=== PATIENT | male | born 1990 | race African-American/Black ===

== ENCOUNTER 2017-04-10 22:40 | Emergency (ER) | payer MEDICAID ==
[~2017-04-10] VITALS: Ht 170.2 cm; Wt 68.0 kg
[2017-04-10 23:05] VITALS: BP 165/108
[2017-04-11] MEDS ORDERED: SODIUM CHLORIDE 0.9% 1,000 ML IVB ONE (00:10)
== END 2017-04-11 01:02 | disposition left against medical advice (07) ==
LOC: EDBD 22:40 → ER 22:51
DX: F19.920 Other psychoactive substance use, unspecified with intoxication, uncomplicated (principal); F41.9 Anxiety disorder, unspecified; F31.9 Bipolar disorder, unspecified; R41.82 Altered mental status, unspecified

== ENCOUNTER 2018-08-16 19:24 | Emergency (ER) | payer MEDICAID ==
[~2018-08-16] VITALS: Ht 175.3 cm; Wt 74.8 kg
[2018-08-16] MEDS ORDERED: LORazepam 0.5 MG TAB PO ONE (20:45)
[2018-08-16 20:56] LABS: Urine WBC None Seen /hpf (0 - 3)
[2018-08-16 21:07] LABS: Urine Bacteria NONE SEEN /hpf (None Seen); Urine Blood Negative /uL (Negative); Urine Specific Gravity 1.001 (1.001-1.035)
[2018-08-16 21:14] LABS: Basophils # (auto) 0.1 uL; Basophils % (auto) 0.5 % (0.0-2.0); Eosinophils # (auto) 0.1 uL; Eosinophils % (auto) 0.6 % (0.0-7.0); Hematocrit 44.2 % (41.0-53.0); Hemoglobin 14.3 g/dL (13.5-17.5); Lymphocytes # (auto) 1.3 uL; Lymphocytes % (auto) 11.1 % (10.0-50.0); Mean Corpuscular Hemoglobin 27.4 pg (28.0-32.0); Mean Corpuscular Hgb Conc. 32.4 g/dL (32.0-36.0); Mean Corpuscular Volume 84.5 fL (80.0-100.0); Monocytes # (auto) 0.6 uL; Monocytes % (auto) 4.6 % (0.0-12.0); Neutrophils # (auto) 9.9 uL; Neutrophils % (auto) 83.2 % (37.0-80.0); Nucleated Red Blood Cells % 0.1 %; Platelet Count (auto) 356 10^3/uL (140-450); Red Blood Cells 5.23 10^6/uL (4.5-5.90); Red Cell Distribution Width 13.8 % (11.8-14.3); White Blood Cell 11.9 10^3/uL (4.4-10.8)
[2018-08-16 21:30] LABS: Albumin 4.2 g/dL (3.4-5.0); Calcium 8.7 mg/dL (8.5-10.1); Potassium 3.4 mmol/L (3.5-5.1)
[2018-08-16 21:32] LABS: BUN/Creatinine Ratio 7.2
[2018-08-16 21:35] LABS: Bilirubin, Total 0.5 mg/dL (0.2-1.0)
[2018-08-16 21:37] LABS: Alcohol, Urine < 3.0 mg/dL (0-5); Amphetamine Screen, Urine POSITIVE (NEGATIVE); Barbiturate Scree,Urine NEGATIVE (NEGATIVE); Benzodiazephine Screen, Urine NEGATIVE (NEGATIVE); Cannabinoid Screen, Urine NEGATIVE (NEGATIVE); Cocaine Screen, Urine NEGATIVE (NEGATIVE); Opiate Scree,Urine NEGATIVE (NEGATIVE); Phencyclidine Screen, Urine NEGATIVE (NEGATIVE)
[2018-08-16] MEDS ORDERED: HYDROcodone-ACET 5/325MG TAB PO ONE (23:15)
[2018-08-16 23:47] LABS: Acetaminophen < 2.0 ug/mL (10-30); Salicylate 1.9 mg/dL (2.8-20.0)
[2018-08-17] MEDS ORDERED: KETOROLAC TROMETH 60MG/2ML VIAL IM ONE (05:15)
[2018-08-17] MEDS: OLANZapine 5 MG TAB PO SCH (10:00)
[2018-08-17] MEDS ORDERED: LORazepam 0.5 MG TAB PO PRN (10:00)
[2018-08-17] MEDS ORDERED: HYDROcodone-ACET 10/325MG TAB PO ONE (11:30)
[2018-08-18] MEDS: OLANZapine 5 MG TAB PO SCH (12:00)
[2018-08-18] MEDS ORDERED: HYDROcodone-ACET 10/325MG TAB PO ONE (23:30)
[2018-08-19 10:00] VITALS: BP 109/63
[2018-08-19] MEDS: OLANZapine 5 MG TAB PO SCH (10:32)
[2018-08-19] MEDS ORDERED: HYDROcodone-ACET 10/325MG TAB PO ONE (20:00)
== END 2018-08-20 06:36 | disposition left against medical advice (07) ==
LOC: ER 19:24
DX: R45.851 Suicidal ideations (principal); F15.10 Other stimulant abuse, uncomplicated
CPT/HCPCS: 36415; 73130; 80053; 80164; 80307; 80320; 80329; 81001; 84439; 84443; 85025; 96372; 99285; J1885

== ENCOUNTER 2018-11-21 20:38 | Emergency (ER) | payer MEDICAID ==
[~2018-11-21] VITALS: Ht 172.7 cm; Wt 77.1 kg
[2018-11-21 20:53] VITALS: BP 157/113
== END 2018-11-21 21:55 | disposition left against medical advice (07) ==
LOC: EDBD 20:38 → ER 20:44
DX: F15.11 Other stimulant abuse, in remission (principal); Z53.29 Procedure and treatment not carried out because of patient's decision for other reasons

== ENCOUNTER 2018-11-25 19:02 | Emergency (ER) | payer MEDICAID ==
[~2018-11-25] VITALS: Ht 177.8 cm; Wt 77.1 kg
[2018-11-25] MEDS: POTASSIUM CHL 10% (20 MEQ/15ML) 15ml ORAL SOLN PO ONE ×2 (02:05→20:30)
[2018-11-25 20:11] LABS: Albumin 4.3 g/dL (3.4-5.0); Anion Gap 10 (5-15); Blood Urea Nitrogen 7 mg/dL (7-18); Calcium 9.1 mg/dL (8.5-10.1); Carbon Dioxide 26 mmol/L (21-32); Chloride 97 mmol/L (98-107); Glucose 96 mg/dL (74-106); Salicylate < 1.7 mg/dL (2.8-20.0); Sodium 133 mmol/L (136-145)
[2018-11-25 20:14] LABS: Acetaminophen < 2.0 ug/mL (10-30)
[2018-11-25 20:15] LABS: Basophils # (auto) 0 uL; Eosinophils # (auto) 0 uL; Hemoglobin 13.3 g/dL (13.5-17.5); Nucleated Red Blood Cells % 0.1 %
[2018-11-25 20:16] LABS: Alanine Aminotransferase 30 U/L (16-61); Alkaline Phosphatase 59 U/L (45-117); Aspartate Aminotransferase 31 U/L (15-37); BUN/Creatinine Ratio 5.8; Basophils % (auto) 0.2 % (0.0-2.0); Bilirubin, Total 0.3 mg/dL (0.2-1.0); Blood Alcohol < 3.0 mg/dL (0-5); Eosinophils % (auto) 0.2 % (0.0-7.0); GFR African American 92 mL/min; GFR Non-African American 76 mL/min; Hematocrit 40.9 % (41.0-53.0); Lymphocytes # (auto) 1.8 uL; Lymphocytes % (auto) 14.6 % (10.0-50.0); Mean Corpuscular Hemoglobin 26.4 pg (28.0-32.0); Mean Corpuscular Hgb Conc. 32.6 g/dL (32.0-36.0); Monocytes % (auto) 7.9 % (0.0-12.0); Neutrophils # (auto) 9.5 uL; Neutrophils % (auto) 77.1 % (37.0-80.0); Platelet Count (auto) 348 10^3/uL (140-450); Red Blood Cells 5.05 10^6/uL (4.5-5.90); Total Protein 7.7 g/dL (6.4-8.2); White Blood Cell 12.3 10^3/uL (4.4-10.8)
[2018-11-25 20:21] LABS: Potassium 2.7 mmol/L (3.5-5.1)
[2018-11-25 21:49] LABS: Urine WBC None Seen /hpf (0 - 3)
[2018-11-25 21:54] LABS: Urine Bacteria NONE SEEN /hpf (None Seen); Urine Blood Negative /uL (Negative)
[2018-11-25 22:10] LABS: Alcohol, Urine < 3.0 mg/dL (0-5); Amphetamine Screen, Urine POSITIVE (NEGATIVE); Barbiturate Scree,Urine NEGATIVE (NEGATIVE); Benzodiazephine Screen, Urine NEGATIVE (NEGATIVE); Cannabinoid Screen, Urine NEGATIVE (NEGATIVE); Cocaine Screen, Urine NEGATIVE (NEGATIVE); Opiate Scree,Urine NEGATIVE (NEGATIVE); Phencyclidine Screen, Urine NEGATIVE (NEGATIVE)
[2018-11-26] MEDS ORDERED: ACETAMINOPHEN 325 MG TAB PO ONE (07:30)
[2018-11-26 10:16] VITALS: BP 148/103
== END 2018-11-26 10:20 | disposition home or self-care (01) ==
LOC: ER 19:10
DX: F41.9 Anxiety disorder, unspecified (principal); F32.9 Major depressive disorder, single episode, unspecified; E87.6 Hypokalemia; R45.850 Homicidal ideations; F15.10 Other stimulant abuse, uncomplicated
CPT/HCPCS: 36415; 80053; 80307; 80320; 80329; 81001; 84132; 85025

== ENCOUNTER 2018-12-11 15:39 | Emergency (ER) | payer MEDICAID, OTHER ==
[~2018-12-11] VITALS: Ht 177.8 cm; Wt 72.6 kg
[2018-12-11 21:05] VITALS: BP 115/89
== END 2018-12-11 21:04 | disposition home or self-care (01) ==
LOC: ER 15:39 → EDBD 15:39 → EDUNIT# 15:39 → ER 21:04
DX: F41.9 Anxiety disorder, unspecified (principal); F32.9 Major depressive disorder, single episode, unspecified; F20.9 Schizophrenia, unspecified; Z76.0 Encounter for issue of repeat prescription; Z88.8 Allergy status to other drugs, medicaments and biological substances

== ENCOUNTER 2019-03-05 03:30 | Emergency (ER) | payer MEDICAID ==
[~2019-03-05] VITALS: Ht 175.3 cm; Wt 59.0 kg
[2019-03-05 07:10] VITALS: BP 140/100
== END 2019-03-05 07:15 | disposition home or self-care (01) ==
LOC: EDBD 03:30 → ER 03:37
DX: F41.9 Anxiety disorder, unspecified (principal); F20.9 Schizophrenia, unspecified; Z76.0 Encounter for issue of repeat prescription

== ENCOUNTER 2019-09-30 14:43 | Emergency (ER) | payer MEDICARE, MEDICAID ==
[~2019-09-30] VITALS: Ht 172.7 cm; Wt 77.1 kg
[2019-09-30 17:00] LABS: Basophils # (auto) 0 uL; Basophils % (auto) 0.5 % (0.0-2.0); Eosinophils # (auto) 0.1 uL; Eosinophils % (auto) 0.9 % (0.0-7.0); Hematocrit 39.9 % (41.0-53.0); Hemoglobin 13.2 g/dL (13.5-17.5); Lymphocytes # (auto) 1.1 uL; Lymphocytes % (auto) 10.6 % (10.0-50.0); Mean Corpuscular Hemoglobin 27.3 pg (28.0-32.0); Mean Corpuscular Hgb Conc. 33.1 g/dL (32.0-36.0); Mean Corpuscular Volume 82.4 fL (80.0-100.0); Monocytes # (auto) 0.9 uL; Monocytes % (auto) 8.3 % (0.0-12.0); Neutrophils # (auto) 8.4 uL; Neutrophils % (auto) 79.7 % (37.0-80.0); Platelet Count (auto) 320 10^3/uL (140-450); Red Blood Cells 4.84 10^6/uL (4.5-5.90); Red Cell Distribution Width 13.9 % (11.8-14.3); White Blood Cell 10.6 10^3/uL (4.4-10.8)
[2019-09-30 17:09] LABS: Alanine Aminotransferase 22 U/L (16-61); Albumin 4.2 g/dL (3.4-5.0); Anion Gap 7 (5-15); Aspartate Aminotransferase 24 U/L (15-37); BUN/Creatinine Ratio 11.9; Blood Alcohol < 3.0 mg/dL (0-5); Blood Urea Nitrogen 13 mg/dL (7-18); Calcium 8.6 mg/dL (8.5-10.1); Carbon Dioxide 29 mmol/L (21-32); Chloride 104 mmol/L (98-107); GFR African American 103 mL/min; GFR Non-African American 85 mL/min; Glucose 103 mg/dL (74-106); Potassium 3.3 mmol/L (3.5-5.1); Salicylate < 1.7 mg/dL (2.8-20.0); Sodium 140 mmol/L (136-145)
[2019-09-30 17:12] LABS: Alkaline Phosphatase 64 U/L (45-117); Bilirubin, Total 0.6 mg/dL (0.2-1.0); Total Protein 7.9 g/dL (6.4-8.2)
[2019-09-30 17:13] LABS: Acetaminophen < 2.0 ug/mL (10-30)
[2019-09-30 21:04] LABS: Urine Bacteria NONE SEEN /hpf (None Seen); Urine Blood Negative /uL (Negative); Urine Mucus FEW (None Seen); Urine Specific Gravity 1.012 (1.001-1.035); Urine WBC 4 /hpf (0 - 3)
[2019-09-30 21:24] LABS: Amphetamine Screen, Urine POSITIVE (NEGATIVE); Barbiturate Scree,Urine NEGATIVE (NEGATIVE); Benzodiazephine Screen, Urine NEGATIVE (NEGATIVE); Cannabinoid Screen, Urine NEGATIVE (NEGATIVE); Cocaine Screen, Urine NEGATIVE (NEGATIVE); Opiate Scree,Urine NEGATIVE (NEGATIVE); Phencyclidine Screen, Urine NEGATIVE (NEGATIVE)
[2019-09-30] MEDS ORDERED: OLANZapine 5 MG TAB PO ONE (22:30)
[2019-10-01] MEDS ORDERED: POTASSIUM EFFERVESENT TAB 25 MEQ PO ONE (09:00)
[2019-10-01 09:43] VITALS: BP 140/68
== END 2019-10-01 10:02 | disposition short-term general hospital (02) ==
LOC: ER 14:43
DX: F20.0 Paranoid schizophrenia (principal); R45.851 Suicidal ideations; F41.9 Anxiety disorder, unspecified; I10 Essential (primary) hypertension; J45.909 Unspecified asthma, uncomplicated
CPT/HCPCS: 36415; 80053; 80307; 80320; 80329; 81001; 85025

== ENCOUNTER 2020-04-20 20:50 | Emergency (ER) | payer MEDICARE, MEDICAID ==
[~2020-04-20] VITALS: Ht 180.3 cm; Wt 54.4 kg
[2020-04-20] MEDS ORDERED: diphenhdrAMINE HCL 50 MG/1 ML VL IM ONE (23:30)
[2020-04-21] MEDS ORDERED: BENZTROPINE MESYLATE (1MG/ML) 2ML VIAL IM ONE
[2020-04-21 01:02] VITALS: BP 104/72
[2020-04-21] MEDS ORDERED: diphenhdrAMINE HCL 50 MG/1 ML VL IM ONE (01:15)
== END 2020-04-21 05:47 | disposition home or self-care (01) ==
LOC: EDBD 20:50 → ER 20:50 → EDUNIT# 20:50 → ER 04-21 05:47
DX: M43.6 Torticollis (principal); T42.6X5A Adverse effect of other antiepileptic and sedative-hypnotic drugs, initial encounter; J45.909 Unspecified asthma, uncomplicated; I10 Essential (primary) hypertension; F41.9 Anxiety disorder, unspecified; F20.9 Schizophrenia, unspecified; Y92.9 Unspecified place or not applicable
CPT/HCPCS: 96372; 99284; J1200

== ENCOUNTER → 2020-04-25 | Emergency (ER) | payer MEDICARE, MEDICAID ==
[~2020-04-25] VITALS: Ht 152.4 cm; Wt 4.5 kg
[~2020-04-25] MED LIST: LORazepam 2MG/ML-1ML VIAL IV ONE; SODIUM CHLORIDE 0.9% 2,000 ML IV ONE
[2020-04-25 04:32] LABS: Basophils # (auto) 0.1 10 ^3/uL (0-0.2); Basophils % (auto) 0.6 % (0.0-2.0); Eosinophils # (auto) 0.2 10 ^3/uL (0-0.8); Eosinophils % (auto) 1.9 % (0.0-7.0); Hematocrit 44.3 % (41.0-53.0); Hemoglobin 14.3 g/dL (13.5-17.5); Lymphocytes # (auto) 1.4 10 ^3/uL (0.4-5.4); Lymphocytes % (auto) 16.5 % (10.0-50.0); Mean Corpuscular Hemoglobin 26.4 pg (28.0-32.0); Mean Corpuscular Hgb Conc. 32.2 g/dL (32.0-36.0); Mean Corpuscular Volume 81.9 fL (80.0-100.0); Monocytes # (auto) 0.6 10 ^3/uL (0-1.3); Monocytes % (auto) 7.1 % (0.0-12.0); Neutrophils # (auto) 6.3 10 ^3/uL (1.6-8.6); Neutrophils % (auto) 73.9 % (37.0-80.0); Platelet Count (auto) 326 10^3/uL (140-450); Red Blood Cells 5.41 10^6/uL (4.5-5.90); Red Cell Distribution Width 13.9 % (11.8-14.3); White Blood Cell 8.6 10^3/uL (4.4-10.8)
[2020-04-25 04:46] LABS: Amphetamine Screen, Urine POSITIVE (NEGATIVE); Barbiturate Scree,Urine NEGATIVE (NEGATIVE); Benzodiazephine Screen, Urine POSITIVE (NEGATIVE); Cannabinoid Screen, Urine NEGATIVE (NEGATIVE); Cocaine Screen, Urine POSITIVE (NEGATIVE); Opiate Scree,Urine NEGATIVE (NEGATIVE); Phencyclidine Screen, Urine NEGATIVE (NEGATIVE)
[2020-04-25 04:54] LABS: Albumin 4.2 g/dL (3.4-5.0); Calcium 9.3 mg/dL (8.5-10.1); Magnesium 2.4 mg/dL (1.6-2.6); Potassium 3.8 mmol/L (3.5-5.1)
[2020-04-25 05:00] LABS: BUN/Creatinine Ratio 4.4; Bilirubin, Total 0.4 mg/dL (0.2-1.0)
[2020-04-25 12:00] VITALS: BP 98/64
== END | disposition home or self-care (01) ==
LOC: EDUNIT# 03:01 → EDBD 03:11 → ER 03:15
DX: F14.10 Cocaine abuse, uncomplicated (principal); F15.10 Other stimulant abuse, uncomplicated; I10 Essential (primary) hypertension; F41.9 Anxiety disorder, unspecified; F20.9 Schizophrenia, unspecified; J45.909 Unspecified asthma, uncomplicated; Z88.0 Allergy status to penicillin; Z88.8 Allergy status to other drugs, medicaments and biological substances
CPT/HCPCS: 36415; 80053; 80307; 80320; 82550; 83735; 84484; 85025; 93005; 96361; 96374; 96376; 99285; J2060; J7030

== ENCOUNTER 2020-04-29 16:55 | Emergency (ER) | payer MEDICARE, MEDICAID ==
[~2020-04-29] VITALS: Ht 177.8 cm; Wt 74.8 kg
[2020-04-29 17:34] LABS: Basophils # (auto) 0 10 ^3/uL (0-0.2); Basophils % (auto) 0.6 % (0.0-2.0); Eosinophils # (auto) 0.2 10 ^3/uL (0-0.8); Lymphocytes # (auto) 1.5 10 ^3/uL (0.4-5.4); Monocytes # (auto) 0.5 10 ^3/uL (0-1.3); Red Cell Distribution Width 13.9 % (11.8-14.3)
[2020-04-29 17:35] LABS: Eosinophils % (auto) 2.5 % (0.0-7.0); Hematocrit 42.3 % (41.0-53.0); Hemoglobin 13.9 g/dL (13.5-17.5); Lymphocytes % (auto) 19.7 % (10.0-50.0); Mean Corpuscular Hemoglobin 26.7 pg (28.0-32.0); Mean Corpuscular Hgb Conc. 32.8 g/dL (32.0-36.0); Mean Corpuscular Volume 81.4 fL (80.0-100.0); Monocytes % (auto) 6.2 % (0.0-12.0); Neutrophils # (auto) 5.3 10 ^3/uL (1.6-8.6); Platelet Count (auto) 346 10^3/uL (140-450); Red Blood Cells 5.19 10^6/uL (4.5-5.90); White Blood Cell 7.5 10^3/uL (4.4-10.8)
[2020-04-29 17:44] VITALS: BP 137/100
[2020-04-29 18:04] LABS: Albumin 3.8 g/dL (3.4-5.0); BUN/Creatinine Ratio 5.8; Calcium 8.8 mg/dL (8.5-10.1); Potassium 3.8 mmol/L (3.5-5.1)
[2020-04-29 18:05] LABS: Salicylate < 1.7 mg/dL (2.8-20.0)
[2020-04-29 18:06] LABS: Bilirubin, Total 0.4 mg/dL (0.2-1.0); Total Protein 7.7 g/dL (6.4-8.2)
[2020-04-29 18:23] LABS: Acetaminophen < 2.0 ug/mL (10-30)
[2020-04-29 20:20] LABS: Urine Bacteria NONE SEEN /hpf (None Seen); Urine Blood Negative /uL (Negative); Urine Mucus FEW (None Seen); Urine Specific Gravity 1.022 (1.001-1.035); Urine WBC 1 /hpf (0 - 3)
[2020-04-29 20:26] LABS: Amphetamine Screen, Urine POSITIVE (NEGATIVE); Barbiturate Scree,Urine NEGATIVE (NEGATIVE); Benzodiazephine Screen, Urine NEGATIVE (NEGATIVE); Cannabinoid Screen, Urine NEGATIVE (NEGATIVE); Cocaine Screen, Urine POSITIVE (NEGATIVE); Opiate Scree,Urine NEGATIVE (NEGATIVE); Phencyclidine Screen, Urine NEGATIVE (NEGATIVE)
== END 2020-04-29 17:31 | disposition left against medical advice (07) ==
LOC: ER 16:55 → EDBD 16:55 → ER 17:31
DX: R45.851 Suicidal ideations (principal); F32.9 Major depressive disorder, single episode, unspecified; F19.10 Other psychoactive substance abuse, uncomplicated; F17.210 Nicotine dependence, cigarettes, uncomplicated; I10 Essential (primary) hypertension; F20.9 Schizophrenia, unspecified
CPT/HCPCS: 36415; 80053; 80307; 80329; 81001; 85025